=== PATIENT | male | born 1940 | race Caucasian/White ===

== ENCOUNTER → 2020-05-30 15:38 | Outpatient (BNVA) | payer MEDICARE, OTHER, SELFPAY | PROVIDERS: PCP Nurse Practitioner Pediatrics; Visit Provider Anesthesiology | DX: M45.9 Ankylosing spondylitis of unspecified sites in spine (principal); M96.1 Postlaminectomy syndrome, not elsewhere classified; G89.4 Chronic pain syndrome | CPT/HCPCS: 99212 ==

== ENCOUNTER 2020-07-12 06:07 | Outpatient (REF) | payer MEDICARE, OTHER, SELFPAY ==
--- NOTE | ~2020-07-12 | FL_ITS ---
EXAMINATION: XR FLUOROSCOPY WITH IMAGES CLINICAL INFORMATION: M96.1 - Postlaminectomy syndrome, not elsewhere classified COMPARISON: None. TECHNIQUE: Fluoroscopy performed by Sanjuana Abernathy NP. Fluoroscopy time: 0.5 minutes DAP: 6.07 Gycm2 Images: 1 FINDINGS: There is interlaminar spinal needle seen at level of L3-L4 with some epidural contrast suggested. There has been prior fusion with bilateral pedicle screws and surgical clips L4-L5. Hardware appears intact. Prior vertebral augmentation also noted at L2 with intravertebral cement. There is an IVC filter right paralumbar region. FL/FL guidance in treatment room IMPRESSION: Fluoroscopy for pain management procedure.
== END 2020-07-12 06:08 | disposition home or self-care (01) ==
LOC: HO.RADIR 06:07
PROVIDERS: Visit Provider Anesthesiology
DX: G89.4 Chronic pain syndrome (principal); M96.1 Postlaminectomy syndrome, not elsewhere classified; M45.9 Ankylosing spondylitis of unspecified sites in spine
CPT/HCPCS: 62323; J1170; Q9967

== ENCOUNTER → 2020-07-18 11:29 | Outpatient (BNVA) | payer MEDICARE, OTHER, SELFPAY | PROVIDERS: PCP Nurse Practitioner Pediatrics; Visit Provider Anesthesiology | DX: M45.9 Ankylosing spondylitis of unspecified sites in spine (principal); M96.1 Postlaminectomy syndrome, not elsewhere classified; G89.4 Chronic pain syndrome | CPT/HCPCS: 99212 ==

== ENCOUNTER 2023-10-06 03:45 | Emergency (ER) | payer MEDICARE, SELFPAY ==
--- NOTE | ~2023-10-06 | XR_ITS ---
EXAMINATION: XR ABDOMEN KUB CLINICAL INDICATION: Nephrostomy tube position. COMPARISON: Correlation made with CT performed the same day. TECHNIQUE: AP view of the abdomen. FINDINGS: There is a nonspecific nonobstructive bowel gas pattern. Nephrostomy tube overlies the right lower quadrant/upper pelvis in the region of right renal transplant. There is lower lumbar fusion. There is lower thoracic and upper lumbar prior vertebroplasty's. The soft tissues are unremarkable. XR/XR KUB IMPRESSION: Nephrostomy tube overlies the right lower quadrant/upper pelvis in the region of right renal transplant. Nonobstructive bowel gas pattern.
--- NOTE | ~2023-10-06 | CT_ITS ---
EXAMINATION: CT ABDOMEN AND PELVIS WITHOUT CONTRAST CLINICAL INFORMATION: Abdominal pain. Nausea.. COMPARISON: None available. TECHNIQUE: Multidetector volumetric imaging was performed from the superior aspect of the liver through the pubic symphysis. Sagittal and coronal reformatted images were obtained on the technologist's workstation. This CT examination was performed using dose optimization techniques as appropriate, variously including the following: *Automated exposure control *Adjustment of mA and/or kV according to patient size (this includes techniques or standardized protocols for targeted exams where dose is matched to indication/reason for exam; i.e. extremities or head) *Use of iterative reconstruction technique DLP: 731 mGy-cm FINDINGS: LUNG BASES: There are minimal bilateral pleural effusions. LIVER, GALLBLADDER, AND BILIARY TREE: The liver is normal in size, shape, and attenuation. No focal hepatic lesion or biliary ductal dilatation is present. Multiple gallstones are noted. PANCREAS: The pancreas is atrophic. SPLEEN: Unremarkable. ADRENAL GLANDS: Unremarkable. KIDNEYS AND URETERS: The [place] kidneys are small and atrophic. Scattered bilateral cysts are seen within the [place] kidneys. There is a transplanted kidney within the right lower quadrant. A nephrostomy tube extends into the right renal pelvis. There is no significant hydronephrosis of the transplanted right kidney. BLADDER: There is urinary bladder wall thickening with a focal area of thickening superiorly within the urinary bladder measuring up to 3.3 cm. GASTROINTESTINAL TRACT: There is diverticulosis throughout the colon without evidence for diverticulitis. ABDOMINAL WALL: No significant hernia is appreciated. LYMPH NODES: Normal. VASCULAR: There is atherosclerotic plaque of the abdominal aorta and proximal branches. There is an IVC filter in place. PELVIC VISCERA: Unremarkable. OSSEOUS STRUCTURES: The bony structures are diffusely osteopenic. There is L4-L5 posterior fusion. There is been prior vertebroplasty's at T12 and L2. There is a moderate L1 compression fracture. There is moderate to severe bilateral hip degenerative change greater on the left. CT/CT abdomen pelvis wo IV con IMPRESSION: 1. Urinary bladder wall thickening with a focal area of thickening superiorly within the urinary bladder measuring up to 3.3 cm. Consider cystitis. A bladder mass is also considered. 2. Transplanted kidney within the right lower quadrant with nephrostomy tube in place. No significant hydronephrosis. 3. Cholelithiasis. 4. Diverticulosis without evidence for diverticulitis. 5. Minimal bilateral pleural effusions. 6. Osteopenia. Moderate L1 compression fracture. Prior vertebroplasty's at T12 and L2. 7. Moderate to severe bilateral hip degenerative change greater on the left. Fleischner guidelines were followed.
[2023-10-06 03:58] VITALS: BP 143/76; BP 161/92; PULSE 82; PULSE 83; RESP 16; TEMP 36.4; O2SAT 94; O2SAT 98; BMI 22.9
--- NOTE | 2023-10-06 04:27 | ED_ITS ---
HPI - General Adult General Chief complaint: General Medical Stated complaint: dislodged gastrostomy tube Time Seen by Provider: 10/06/23 04:10 Source: patient and RN notes reviewed Mode of arrival: EMS Limitations: no limitations History of Present Illness ED Provider: patrick ROJAS narrative: Patient came from senior care as right nephrostomy tube was draining blood since morning and just prior to arrival not able to drain patient is kept senior care yesterday and it was draining clear urine patient does have history of AFib is on Eliquis patient is status post right renal transplant Related Data Home Medications ?Medication ?Instructions ?Recorded ?Confirmed aspirin 81 mg tablet,delayed 81 mg PO DAILY 05/30/20 release (Adult Aspirin Regimen) atenolol 50 mg tablet 50 mg PO DAILY 05/30/20 atorvastatin 40 mg tablet mg PO 05/30/20 empagliflozin 25 mg tablet 0 mg PO 05/30/20 omeprazole 20 mg capsule,delayed 20 mg PO DAILY 05/30/20 release prednisone 2.5 mg tablet mg PO 05/30/20 pregabalin 50 mg capsule mg PO 05/30/20 tacrolimus 1 mg capsule, 1 mg PO BID 05/30/20 immediate-release Allergies Allergy/AdvReac Type Severity Reaction Status Date / Time heparin Allergy high Verified 10/06/23 04:04 temperatue warfarin [From Coumadin] Allergy bleeding Verified 10/06/23 04:04 lungs Review of Systems 2 Review of Systems: Yes all other systems are reviewed and are negative [facility] Past Medical History Medical History Chronic pain syndrome Postlaminectomy syndrome of lumbar region Ankylosing spondylitis Social History Social History Use of substances other than those prescribed or required for medical reasons: No Advance Directives: Yes Advance Directives on File: Yes Advance Directives Date on File: 10/06/23 Do you have a plan to hurt others: No Plan Physical Exam ED Vital Signs: Vital Signs - 24 hr 10/06/23 03:58 10/06/23 06:27 Temperature 97.6 F 97.8 F Pulse Rate 83 Respiratory Rate 16 169 H Blood Pressure 161/92 H 141/81 H Pulse Oximetry 98 98 Oxygen Delivery Method Room Air Room Air BMI result Body Mass Index 22.9 Appearance: Alert. Oriented X3. No acute distress. Eyes: PERRLA, No Nystagmus ENT: Pharynx normal. Oral Mucosa moist Neck: Normal inspection. Neck supple. CVS: Normal heart rate and rhythm. Pulses normal. Respiratory: No respiratory distress. Equal air entry bilateral, no wheezing/rales/rhonchi Abdomen: Soft and nontender. Bowel sounds are present, no mass palpable, no CVA tenderness nephrostomy tube kinked which was repositioned and push back started draining Skin: Skin warm and dry. Normal skin color. Normal skin turgor. Extremities: No lower extremity edema. No calf tenderness Neuro: Oriented X 3. No motor deficit. Medications Administered Generic Name Dose Route Start Last Admin Trade Name Freq PRN Reason Stop Dose Admin Sodium Chloride 1,000 mls @ 999 mls/hr 10/06/23 06:34 10/06/23 06:42 Ns IV 10/06/23 07:34 999 mls/hr .Q1H1M ONE Administration Medical Decision Making Medical Decision Making [facility] Narrative: Patient is status post a renal transplant with nephrostomy tube came from senior care as facility was not working as it was kinked for last 24 hours also nurse's noticed for hematuria patient is on Eliquis last creatinine was 1.2 2 days ago at [facility] after reposition of the nephrostomy tube patient has started draining urine about 250 cc came out labs showed creatinine increased to 2.01 BUN 41 UA showed mostly RBCs nitrite negative. Patient was given 1 L of IV saline. Will be sending back patient to senior care advised recheck kidney functions in 2 days and follow with his on employee relations representative Lab Data [facility] Lab Attestation statement: I reviewed the patient's lab results. 10/06/23 05:29 10/06/23 05:29 Labs: Lab Results 10/06/23 10/06/23 Range/Units 05:29 05:37 WBC 9.1 (4.8-10.8) X10*3/uL RBC 3.63 L (4.60-5.80) X10*6/uL Hgb 10.9 L (14.0-18.0) g/dl Hct 33.6 L (42.0-52.0) % MCV 92.6 (80.0-98.0) fL MCH 30.0 (27.0-33.0) pg MCHC 32.4 (31.0-36.0) g/dl RDW 15.8 (11.0-16.0) % Plt Count 93 L (160-400) X10*3/uL MPV 10.8 (9.4-12.4) fL Immature Gran % (Auto) 0.5 H (0.0-0.4) % Neut % (Auto) 75.7 H (45-73) % Lymph % (Auto) 9.5 L (20-40) % [place] % (Auto) 13.7 H (2-11) % Eos % (Auto) 0.4 (0-4) % Baso % (Auto) 0.2 (0-2) % Lymph # (Auto) 0.9 L (1.2-4.9) X10*3/uL [place] # (Auto) 1.3 H (0.1-1.2) X10*3/uL Eos # (Auto) 0.0 (0.0-0.4) X10*3/uL Baso # (Auto) 0.0 (0.0-0.2) X10*3/uL Abs Immat Gran (auto) 0.05 H (0.00-0.03) X10*3/uL Absolute Neuts (auto) 6.9 (2.0-8.3) x10*3/uL Absolute Nucleated RBC 0.000 (0.0-0.012) X10*3/uL Nucleated RBC % (auto) 0.0 (0.0-0.2) /100WBC Smear Tech's Comments VERIFIED Sodium 143 (135-145) mmol/L Potassium 4.7 (3.3-5.1) mmol/L Chloride 105 (96-108) mmol/L Carbon Dioxide 26 (22-29) mmol/L Anion Gap 17 (12-20) BUN 41 H (9-16) mg/dL Creatinine 2.01 H (0.5-1.4) mg/dL Estim Creat Clear Calc 28.5 Estimated GFR 32 Random Glucose 71 (60-115) mg/dL Calcium 9.3 (8.4-10.2) mg/dL Total Bilirubin 0.3 (0.0-1.0) mg/dL AST 15 (5-37) U/L ALT 8 (0-40) U/L Alkaline Phosphatase 54 (39-117) U/L Total Protein 6.3 L (6.5-8.0) g/dL Albumin 3.2 L (3.5-5.0) g/dL Urine Color Red A Urine Appearance Turbid Urine pH 6.0 (5.0-9.0) Ur Specific Wilson 1.015 (1.005-1.025) Urine Protein 100 (2+) H (Neg-Trace) mg/dL Urine Glucose (UA) Negative (Negative) mg/dL Urine Ketones Negative (Negative) mg/dL Urine Blood Large (3+) H (Negative) Urine Nitrite Negative (Negative) Ur Leukocyte Esterase Moderate (2+) H (Negative) Urine RBC >20 H (0-2) /HPF Urine WBC >50 H (0-5) /HPF Ur Squamous Epith Cells 3-5 (0-2) /HPF Urine Bacteria None Seen (None Seen) Hyaline Casts 0-2 (0-2) /LPF Independent Interpretation I performed an independent interpretation of an: CT Scan Radiology Impression Discussion of test interpretation with radiology: I have reviewed the radiologist's reading. Radiologist Impression: [place] [id number] CT Scan Report Signed Patient: Scott Sims MR#: [id number] : 1940 Acct:[id number] Age/Sex: 83 / M ADM Date: 10/06/23 Loc: .ED Attending Dr: Ordering Physician: Miguel De Anda MD Date of Service: 10/06/23 Procedure(s): CT abdomen pelvis wo IV con Accession Number(s): [id number] cc: Physician,Unknown ; Miguel De Anda MD~ EXAMINATION: CT ABDOMEN AND PELVIS WITHOUT CONTRAST CLINICAL INFORMATION: Abdominal pain. Nausea.. COMPARISON: None available. TECHNIQUE: Multidetector volumetric imaging was performed from the superior aspect of the liver through the pubic symphysis. Sagittal and coronal reformatted images were obtained on the technologist's workstation. This CT examination was performed using dose optimization techniques as appropriate, variously including the following: *Automated exposure control *Adjustment of mA and/or kV according to patient size (this includes techniques or standardized protocols for targeted exams where dose is matched to indication/reason for exam; i.e. extremities or head) *Use of iterative reconstruction technique DLP: 731 mGy-cm FINDINGS: LUNG BASES: There are minimal bilateral pleural effusions. LIVER, GALLBLADDER, AND BILIARY TREE: The liver is normal in size, shape, and attenuation. No focal hepatic lesion or biliary ductal dilatation is present. Multiple gallstones are noted. PANCREAS: The pancreas is atrophic. SPLEEN: Unremarkable. ADRENAL GLANDS: Unremarkable. KIDNEYS AND URETERS: The [place] kidneys are small and atrophic. Scattered bilateral cysts are seen within the [place] kidneys. There is a transplanted kidney within the right lower quadrant. A nephrostomy tube extends into the right renal pelvis. There is no significant hydronephrosis of the transplanted right kidney. BLADDER: There is urinary bladder wall thickening with a focal area of thickening superiorly within the urinary bladder measuring up to 3.3 cm. GASTROINTESTINAL TRACT: There is diverticulosis throughout the colon without evidence for diverticulitis. ABDOMINAL WALL: No significant hernia is appreciated. LYMPH NODES: Normal. VASCULAR: There is atherosclerotic plaque of the abdominal aorta and proximal branches. There is an IVC filter in place. PELVIC VISCERA: Unremarkable. OSSEOUS STRUCTURES: The bony structures are diffusely osteopenic. There is L4-L5 posterior fusion. There is been prior vertebroplasty's at T12 and L2. There is a moderate L1 compression fracture. There is moderate to severe bilateral hip degenerative change greater on the left. CT/CT abdomen pelvis wo IV con IMPRESSION: 1. Urinary bladder wall thickening with a focal area of thickening superiorly within the urinary bladder measuring up to 3.3 cm. Consider cystitis. A bladder mass is also considered. 2. Transplanted kidney within the right lower quadrant with nephrostomy tube in place. No significant hydronephrosis. 3. Cholelithiasis. 4. Diverticulosis without evidence for diverticulitis. 5. Minimal bilateral pleural effusions. 6. Osteopenia. Moderate L1 compression fracture. Prior vertebroplasty's at T12 and L2. 7. Moderate to severe bilateral hip degenerative change greater on the left. Fleischner guidelines were followed. Discharge Plan Discharge Clinical Impression: Malfunction of nephrostomy tube Patient Disposition: Xfer LTC Transfer Details: Right nephrostomy tube was repositioned and is working now, CT scan showed normal position of tube Instructions: Nephrostomy Tube Care (ED) Additional Instructions: Drink plenty of fluids Recheck kidney functions in 2 days and follow-up with his employee relations representative Print Language: Ukrainian
--- NOTE | 2023-10-06 04:40 | PC.NURSE ---
pt change control analyst, repositioned, Dr. Guy into assess nephropathy tube, now draining, x-ray taken and CT Scan ordered.
[2023-10-06 05:35] LABS: Basophils Percent Auto 0.2 % (0-2); Eosinophils Percent Auto 0.4 % (0-4); Hematocrit 33.6 % (42.0-52.0); Hemoglobin 10.9 g/dl (14.0-18.0); Imm Gran Abs Auto 0.05 X10*3/uL (0.00-0.03); Imm Gran Pct Auto 0.5 % (0.0-0.4); Lymphocytes Absolute Auto 0.9 X10*3/uL (1.2-4.9); Lymphocytes Percent Auto 9.5 % (20-40); Mean Corpuscular HGB Conc 32.4 g/dl (31.0-36.0); Mean Corpuscular Volume 92.6 fL (80.0-98.0); Mean Platelet Volume 10.8 fL (9.4-12.4); Monocytes Absolute Auto 1.3 X10*3/uL (0.1-1.2); Monocytes Percent Auto 13.7 % (2-11); Neutrophils Absolute Auto 6.9 x10*3/uL (2.0-8.3); Neutrophils Percent Auto 75.7 % (45-73); Red Blood Count 3.63 X10*6/uL (4.60-5.80); Red Cell Distribution Width 15.8 % (11.0-16.0); White Blood Count 9.1 X10*3/uL (4.8-10.8)
[2023-10-06 05:38] LABS: MANUAL DIFF FLAG SCAN; Platelet Count 93 X10*3/uL (160-400)
[2023-10-06 05:50] LABS: Appearance Urine Turbid; Color Urine Red; Glucose Urine UA Negative (Negative); Leukocyte Esterase Urine Moderate (2+) (Negative); Nitrite Urine Negative (Negative); Specific Gravity - Urine 1.015 (1.005-1.025); UMIC TRIGGER UACC YES; Urine Blood Large (3+) (Negative); Urine Ketones Negative (Negative); Urine Protein 100 (2+) mg/dL (Neg-Trace)
[2023-10-06 05:51] LABS: Bacteria Urine None Seen (None Seen); Hyaline Casts Urine 0-2 /LPF (0-2); RBC Urine >20 /HPF (0-2); UACC Culture Trigger YES; WBC Urine >50 /HPF (0-5)
[2023-10-06 05:53] LABS: Alanine Aminotransferase 8 U/L (0-40); Albumin Level 3.2 g/dL (3.5-5.0); Alkaline Phosphatase 54 U/L (39-117); Anion Gap 17 (12-20); Aspartate Amino Transferase 15 U/L (5-37); Bilirubin Total 0.3 mg/dL (0.0-1.0); Blood Urea Nitrogen 41 mg/dL (9-16); Calcium 9.3 mg/dL (8.4-10.2); Carbon Dioxide 26 mmol/L (22-29); Chloride 105 mmol/L (96-108); Creatinine Clr Calc Pharmacy 28.5; Estimated Glomerular Filt Rate 32; Glucose Random 71 mg/dL (60-115); Potassium 4.7 mmol/L (3.3-5.1); Sodium 143 mmol/L (135-145); Total Protein 6.3 g/dL (6.5-8.0)
[2023-10-06 06:03] LABS: SLIDE REVIEW VERIFIED
--- NOTE | 2023-10-06 06:14 | PC.NURSE ---
pt had 250 of urine output, Dark remi color
[2023-10-06 06:27] VITALS: BP 141/81; RESP 169; TEMP 36.6; O2SAT 98
[2023-10-06] MEDS: 0.9 % Sodium Chloride 1,000 ML 999 ML IV (06:42)
--- NOTE | 2023-10-06 06:49 | PC.NURSE ---
Iv fluid started and fluids
[2023-10-06 08:13] VITALS: BP 173/85; PULSE 86; RESP 14; TEMP 36.5; O2SAT 97
--- NOTE | 2023-10-06 08:15 | PC.NURSE ---
Pt is alert and oriented to self. Nephrostomy urine bag emptied with 700 mls of remi colored urine. Dressing to nephrostomy is clean, dry, and intact. No pain. Pt is resting quietly and awaiting transportation back to [facility].
--- NOTE | 2023-10-06 08:32 | MHC.EDTECH ---
Patient bed changed and patient repositioned
[2023-10-06 09:38] VITALS: BP 159/74; PULSE 86; RESP 16; TEMP -17.7; TEMP 0; O2SAT 98
== END 2023-10-06 09:39 | disposition skilled nursing facility (03) ==
PROVIDERS: Emergency Provider Internal Medicine; PCP Nurse Practitioner Pediatrics
DX: N99.522 Malfunction of incontinent external stoma of urinary tract (principal); R82.71 Bacteriuria; I48.91 Unspecified atrial fibrillation; Z79.01 Long term (current) use of anticoagulants; Z94.0 Kidney transplant status; Y83.8 Other surgical procedures as the cause of abnormal reaction of the patient, or of later complication, without mention of misadventure at the time of the procedure; Y73.8 Miscellaneous gastroenterology and urology devices associated with adverse incidents, not elsewhere classified; Y92.9 Unspecified place or not applicable
CPT/HCPCS: 36415; 74018; 74176; 80053; 81001; 85025; 87086; 87088; 87186; 96360; 99284